=== PATIENT | male | born 2000 | race Caucasian/White ===

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

== ENCOUNTER 2024-06-29 17:03 | Emergency (ER) | payer BC, OTHER ==
[2024-06-29 17:27] VITALS: BP 142/66; PULSE 72
== END 2024-06-29 18:27 | disposition home or self-care (01) ==
LOC: JD.ED 17:03
DX: S93.402A Sprain of unspecified ligament of left ankle, initial encounter (principal); Z79.899 Other long term (current) drug therapy; Z91.048 Other nonmedicinal substance allergy status; X50.1XXA Overexertion from prolonged static or awkward postures, initial encounter; Y93.39 Activity, other involving climbing, rappelling and jumping off
CPT/HCPCS: 73610-26-LT; 73610-LT; 99283